=== PATIENT | male | born 1965 | race Caucasian/White ===

== ENCOUNTER 2017-03-10 13:22 | Emergency (ER) | payer OTHER ==
[~2017-03-10] VITALS: Ht 193 cm; Wt 102.1 kg
[2017-03-10] MEDS ORDERED: NS 1,000 ML IV ONE (13:30)
[2017-03-10] MEDS ORDERED: TRAZ10TA GT (13:34)
[2017-03-10] MEDS ORDERED: LEXA1TAB PO (13:34)
[2017-03-10 13:55] LABS: BASO % 0.2 % (0.0-1.0); EOS # 0.1 K/mm3 (0.0-0.50); EOS % 0.5 % (0.0-3.0); LARGE UNSTAINED CELL # 0.2 K/mm3 (0.0-0.4); LARGE UNSTAINED CELL % 1.1 % (0.0-4.0); LYMPH # 1.2 K/mm3 (1.5-4.5); LYMPH % 8.8 % (24.0-44.0); MEAN CORPUSCULAR HEMOGLOBIN 28.2 pg (27.0-33.0); MEAN CORPUSCULAR VOLUME 85.5 fl (80.0-96.0); MONO # 0.7 K/mm3 (0.0-0.8); MONO % 5.1 % (0.0-5.0); NEUTROPHILS # 11.1 K/mm3 (1.8-7.7); NEUTROPHILS % 84.3 % (36.0-66.0); PLATELET COUNT, AUTOMATED 331 k/mm3 (150-450); RED CELL DISTRIBUTION WIDTH 12.6 % (11.5-14.5); WHITE BLOOD COUNT 13.2 K/mm3 (4.0-10.0)
[2017-03-10 14:14] LABS: ALBUMIN/GLOBULIN RATIO 1.05 (1.00-1.93); ALKALINE PHOSPHATASE 54 U/L (45-117); ALT/SGPT 34 U/L (12-78); AMYLASE 79 U/L (25-115); ANION GAP 6 MEQ/L (8-16); AST/SGOT 18 U/L (15-37); BILIRUBIN,DIRECT 0.1 MG/DL (0.0-0.2); BILIRUBIN,TOTAL 0.6 MG/DL (0.2-1.0); BLOOD UREA NITROGEN 17 MG/DL (7-18); CALCIUM LEVEL 8.7 MG/DL (8.5-10.1); CARBON DIOXIDE LEVEL 33 MEQ/L (21-32); CHLORIDE LEVEL 103 MEQ/L (98-107); CREATININE FOR GFR 0.97 MG/DL (0.70-1.30); GLOMERULAR FILTRATION RATE > 60.0 (>60); GLUCOSE, FASTING 115 MG/DL (70-105); SODIUM LEVEL 142 MEQ/L (136-145); TOTAL PROTEIN 7.8 GM/DL (6.4-8.2)
--- NOTE | 2017-03-10 15:05 | REP ---
ABDOMEN, FLAT PLATE, PA CHEST, THREE VIEWS: HISTORY: Obstruction. Air is present in small and large intestine. There are no dilated loops of intestine. Several air fluid levels are present. There is no pneumothorax. The lungs are clear. IMPRESSION: Nonspecific bowel gas pattern. Signed by Jon Denney MD 03/10/2017 03:07 P
[2017-03-10] MEDS ORDERED: ONDANSETRON 4MG/2ML VIAL (J2405) IV PRN (15:15)
[2017-03-10] MEDS ORDERED: ONDANSETRON 4MG/2ML VIAL (J2405) As Ordered ONE (15:16)
[2017-03-10] MEDS ORDERED: KETOROLAC 30 MG/ML VIAL (J1885) IV ONE (15:45)
[2017-03-10] MEDS ORDERED: POTASSIUM CHLORIDE 10 MEQ SR TABLET PO ONE (16:00)
[2017-03-10] MEDS ORDERED: ZOFR4TAB3 PO (16:03)
[2017-03-10 16:28] VITALS: BP 117/70
[2017-03-11] MEDS ORDERED: ESCI20TA PO (17:58)
[2017-03-11] MEDS ORDERED: TRAZ100T4 PO (17:58)
== END 2017-03-10 16:46 | disposition home or self-care (01) ==
LOC: EDBD 13:22 → M ED 14:55
DX: K52.9 Noninfective gastroenteritis and colitis, unspecified (principal); Z79.899 Other long term (current) drug therapy
CPT/HCPCS: 74022; 80048; 80076; 82150; 83690; 85025; 96361; 96374; 96375; 99282; J1885; J2405

== ENCOUNTER 2017-03-11 13:44 | Inpatient (IN) | payer OTHER ==
[~2017-03-11] VITALS: Ht 191.8 cm; Wt 104.8 kg
[~2017-03-11 13:44] MED LIST: LEXA1TAB PO; TRAZ10TA GT; ZOFR4TAB3 PO
[2017-03-11] MEDS ORDERED: ONDANSETRON 4MG/2ML VIAL (J2405) IV ONE ×2 (14:15→17:15)
[2017-03-11] MEDS ORDERED: MORPHINE 4 MG/ML 1ML SYRINGE IV ONE ×2 (14:15→17:15)
[2017-03-11] MEDS ORDERED: NS 1,000 ML IV ONE ×3 (14:15→17:30)
[2017-03-11] MEDS ORDERED: KETOROLAC 30 MG/ML VIAL (J1885) IV ONE (14:15)
[2017-03-11 14:32] LABS: BASO % 0.2 % (0.0-1.0); EOS # 0.1 K/mm3 (0.0-0.50); EOS % 0.5 % (0.0-3.0); LARGE UNSTAINED CELL # 0.1 K/mm3 (0.0-0.4); LARGE UNSTAINED CELL % 0.6 % (0.0-4.0); LYMPH # 1.2 K/mm3 (1.5-4.5); LYMPH % 6.5 % (24.0-44.0); MEAN CORPUSCULAR HEMOGLOBIN 28.8 pg (27.0-33.0); MEAN CORPUSCULAR HGB CONC 33.9 g/dl (32.0-36.5); MONO # 0.9 K/mm3 (0.0-0.8); MONO % 4.6 % (0.0-5.0); NEUTROPHILS # 16.1 K/mm3 (1.8-7.7); NEUTROPHILS % 87.5 % (36.0-66.0); PLATELET COUNT, AUTOMATED 308 k/mm3 (150-450); RED CELL DISTRIBUTION WIDTH 12.5 % (11.5-14.5); WHITE BLOOD COUNT 18.4 K/mm3 (4.0-10.0)
[2017-03-11 15:01] LABS: ALBUMIN 4.4 GM/DL (3.2-5.2); ALBUMIN/GLOBULIN RATIO 1.22 (1.00-1.93); ALKALINE PHOSPHATASE 62 U/L (45-117); ALT/SGPT 32 U/L (12-78); AMYLASE 172 U/L (25-115); ANION GAP 9 MEQ/L (8-16); AST/SGOT 14 U/L (15-37); BILIRUBIN,DIRECT 0.2 MG/DL (0.0-0.2); BILIRUBIN,TOTAL 0.9 MG/DL (0.2-1.0); BLOOD UREA NITROGEN 20 MG/DL (7-18); CARBON DIOXIDE LEVEL 34 MEQ/L (21-32); CHLORIDE LEVEL 102 MEQ/L (98-107); CREATININE FOR GFR 1.11 MG/DL (0.70-1.30); GLOMERULAR FILTRATION RATE > 60.0 (>60); GLUCOSE, FASTING 135 MG/DL (70-105); POTASSIUM SERUM 3.2 MEQ/L (3.5-5.1); SODIUM LEVEL 145 MEQ/L (136-145)
[2017-03-11] MEDS ORDERED: ISOVUE-370 76% 100ML VIAL (Q9967) As Ordered ONE (15:04)
--- NOTE | 2017-03-11 16:20 | REP ---
CT abdomen pelvis with IV but without oral contrast: History: Generalized abdominal pain, nausea vomiting. Comparison radiographs are from the previous day. CT contrast dose: 100 mL of Isovue-[address] findings: Digital preliminary material handler loader radiograph shows an unremarkable bowel gas pattern. The lung bases are essentially clear on axial CT images. There is no evidence of pleural effusion or upper abdominal ascites. The liver and the spleen are normal in size homogeneous in texture. There is an accessory splenule anterior to this tip of the spleen. No adrenal lesion is seen on either side. Pancreas is unremarkable. There is a tiny slightly opaque area against the dependent portion of the wall of the gallbladder which could be a tiny gravel like calculus or a small polyp. Gallbladder is otherwise unremarkable. No biliary ductal dilation is observed. A normal caliber aorta is seen. No retroperitoneal mass or adenopathy is seen. Kidneys enhance symmetrically are morphologically intact. A normal appendix is visible in the right lower quadrant. Small and large bowel loops are unremarkable in the abdomen and pelvis. No evidence of free air or abnormal fluid collection seen. Right inguinal herniorrhaphy clips are noted. No abdominal wall defect is seen. No bony destructive lesion is seen. There is a unilateral left L5 spondylolysis without spondylolisthesis. There is a bifid spinous process at L5 consistent with spina bifida occulta. No other bony finding. Impression: 1. Tiny opacity on the dependent wall of the gallbladder consistent with gravel like calculus or polyp. 2. Normal appendix. 3. No other acute abdominal or pelvic abnormality. 4. Status post right inguinal herniorrhaphy. 5. Left-sided L5 spondylolysis without spondylolisthesis. Signed by Saurabh Sanz MD 03/11/2017 04:32 P
[2017-03-11] MEDS ORDERED: POTASSIUM CHLORIDE 10 MEQ SR TABLET PO ONE (16:45)
--- NOTE | 2017-03-11 17:03 | REP ---
Right upper quadrant sonography: History: Elevated lipase. Upper abdominal pain. The patient was unable to cooperate with positioning and exam quality is somewhat inhibited. Scanning through right upper quadrant of the abdomen however demonstrates a normal sized thin-walled gallbladder. No stone or polyp is appreciated. Common bile duct is seen and is measured at 0.3 cm. There is evidence of fatty infiltration of the liver. No focal liver mass lesion is seen. Pancreas is obscured by abdominal gas. There is no evidence of ascites or right renal abnormality. The right kidney measures 10.3 x 4.7 x 5.2 cm. Impression: Evidence of fatty infiltration of the liver. Otherwise negative right upper quadrant sonography. Pancreas is obscured by abdominal gas. Signed by Saurabh Sanz MD 03/11/2017 05:09 P
[2017-03-11] MEDS ORDERED: TRAZ100T4 PO (17:58)
[2017-03-11] MEDS ORDERED: ESCI20TA PO (17:58)
[2017-03-11] MEDS ORDERED: MORPHINE 2 MG/ML 1ML SYRINGE IV PRN (19:00)
[2017-03-11] MEDS: ONDANSETRON 4 MG TAB (S0181) PO PRN (19:40)
[2017-03-11] MEDS: KCL 40MEQ in NS 1000ML 1,000 ML IV SCH (19:41)
--- NOTE | 2017-03-11 19:49 | HPE ---
DATE OF ADMISSION: 03/11/2017 PRIMARY CARE PROVIDER: Lisbet Ewing CHIEF COMPLAINT: Abdominal pain. 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 He was unable to keep anything down. He reports that it persisted for another 24 hours prompting return to the emergency room today. He denies any sick contacts, changes in diet. He denies alcohol, tobacco use, recent travel or starting any new medications. His mother and father both had gallstones. He denies chest, shortness of breath, fevers, or chills. He has not had any diarrhea. PAST MEDICAL HISTORY: 1. Chronic back pain secondary to a traumatic compression. The patient follows with the pain clinic. 2. Depression. PAST SURGICAL HISTORY: Bilateral hernia repair. ALLERGIES: No known drug allergies. SOCIAL HISTORY: He does not smoke and does not drink and denies and illicit substance abuse. He is an active duty soldier. HOME MEDICATIONS: - Lexapro 20 mg at night - trazodone 100 mg at night REVIEW OF SYSTEMS: Negative other than history of present illness (HPI). FAMILY HISTORY: Negative other than HPI. PHYSICAL EXAMINATION: VITALS: Temperature 98.9, pulse 65, respiratory rate 20, blood pressure 137/74, oxygen saturation 95% on room air. GENERAL: He is a pleasant middle aged man laying in the bed at a 30 degree angle. He does not appear to be in any acute distress. HEENT: Dry mucous membranes. Cranial nerves II through XII are grossly intact. No elevation in central venous pressure. CARDIOVASCULAR: S1, S2 regular. RESPIRATION: Clear. ABDOMEN: Bowel sounds present. The abdomen is soft and is tender diffusely to palpation, worse on the right in the epigastric region. EXTREMTIIES: No clubbing Normocephalic, atraumatic, pupils equal, round and reactive to light. He has moist mucous membranes. No elevation of central venous pressure. CARDIOVASCULAR: S1, S2, regular rate and rhythm. EXTREMITIES: There is no clubbing, cyanosis, or edema. LABORATORY STUDIES: WBC 18.4, hemoglobin 18.2, hematocrit 53.5, platelet count is 308. Chemistry panel: Sodium 145, potassium 3.2, chloride 102, bicarbonate 34, BUN 20, creatinine 1.1,lipase 667. Urinalysis is fairly unremarkable. IMAGING: The patient had a CT scan of the abdomen and pelvis which revealed tiny opacity on the dependant wall of the gallbladder consistent with gravel like calculus or polyp Normal appendix. Patient had a gallbladder ultrasound that reveals tiny infiltration of the liver, otherwise negative right upper quadrant sonography. ASSESSMENT AND PLAN: This is a 51-year-old man with mild to moderate pancreatitis, etiology is not currently clear. He may have a small stone, maybe caused it. However at this time he does not appear to have other risk factors. We will check a lipid panel. We will check a urine toxicology. I will keep him nothing by mouth. Admit him to the [facility] surgical floor department with IV pain medication. Continue to provide him with IV fluid to replete his dehydrated state, likely the cause of his polycythemia as well as replace his potassium as he is mildly hypokalemic. He has been on chronic depression medications so he is not on any new medications. I suspect that he may be able to tolerate clear liquids as early as tomorrow morning. Chronic back pain. He follows with the pain clinic. He is not on any by mouth medications. Hypokalemia as outlined above. Depression. Continue his trazodone. Deep venous thrombosis (DVT) prophylaxis. The patient will be on Lovenox. DISPOSITION: The patient is admitted to the [facility] surgical service. Admitted to Dr. Sanz's service. Will continue following the patient tomorrow morning at 7 am.
[2017-03-11 19:55] VITALS: BP 136/75
[2017-03-11] MEDS: traZODone 100 MG TAB PO SCH (20:22)
[2017-03-11] MEDS: ESCITALOPRAM OXALATE 10 MG TAB (LEXAPRO) PO SCH (20:23)
[2017-03-11] MEDS: PERCOCET 5MG/325MG TAB PO PRN (20:23)
[2017-03-12] MEDS: PERCOCET 5MG/325MG TAB PO PRN ×6 (00:31→21:30)
[2017-03-12] MEDS: ONDANSETRON 4 MG TAB (S0181) PO PRN (03:57)
[2017-03-12] MEDS: KCL 40MEQ in NS 1000ML 1,000 ML IV SCH ×2 (04:39→15:41)
[2017-03-12] MEDS: ONDANSETRON 4MG/2ML VIAL (J2405) IV PRN (05:47)
[2017-03-12 06:00] VITALS: BP 123/57
[2017-03-12 06:37] LABS: MEAN CORPUSCULAR HEMOGLOBIN 28.5 pg (27.0-33.0); MEAN CORPUSCULAR HGB CONC 33.3 g/dl (32.0-36.5); MEAN CORPUSCULAR VOLUME 85.6 fl (80.0-96.0); RED CELL DISTRIBUTION WIDTH 12.7 % (11.5-14.5); WHITE BLOOD COUNT 14.3 K/mm3 (4.0-10.0)
[2017-03-12 06:56] LABS: ANION GAP 6 MEQ/L (8-16); BLOOD UREA NITROGEN 24 MG/DL (7-18); CALCIUM LEVEL 7.7 MG/DL (8.5-10.1); CARBON DIOXIDE LEVEL 29 MEQ/L (21-32); CHLORIDE LEVEL 111 MEQ/L (98-107); CHOLESTEROL LEVEL 160 MG/DL (<200); CREATININE FOR GFR 0.94 MG/DL (0.70-1.30); GLOMERULAR FILTRATION RATE > 60.0 (>60); GLUCOSE, FASTING 111 MG/DL (70-105); MAGNESIUM LEVEL 2.2 MG/DL (1.8-2.4); POTASSIUM SERUM 3.9 MEQ/L (3.5-5.1); SODIUM LEVEL 146 MEQ/L (136-145); TRIGLYCERIDES LEVEL 101 MG/DL (<150)
[2017-03-12] MEDS: ENOXAPARIN 40 MG/0.4 ML SYRINGE (J1650) SC SCH (08:40)
--- NOTE | 2017-03-12 11:44 | IPNPDOC ---
Subjective Date Seen The patient was seen on 03/12/17. Subjective Chief Complaint/HPI The patient is a 51-year-old male admitted with a reason for visit of Acute Pancreatitis. Events since last encounter continues to have nausea and epigastric and periumbilical pain, feels thirsty and feels ould be able to tolerate clear liquids, no fever or chills, no diarrhea, no chest pain or cough. Objective Physical Examination General Exam: Positive: Alert, No Acute Distress Eye Exam: Positive: Conjunctiva & lids normal, EOMI, PERRLA, Negative: Sclera icteric ENT Exam: Positive: Atraumatic, Mucous membr. moist/pink, Pharynx Normal Neck Exam: Positive: Supple, Negative: JVD, thyromegaly Chest Exam: Positive: Clear to auscultation, Normal air movement Heart Exam: Positive: Normal S1, Normal S2, Rate Normal, Regular Rhythm, Negative: Murmurs, Rubs Abdomen Exam: Positive: BS Hypoactive, Other (No guarding or rigidity), Soft, Tenderness Extremity Exam: Positive: Normal pulses, Negative: Clubbing, Cyanosis, Edema Skin Exam: Positive: Nl turgor and temperature, Negative: Breakdown, Rash Assessment /Plan Problems (1) Acute pancreatitis Status: Acute Problem Text: Vs duodenitis which can also cause elevated lipase. CT abdomen did not show any pancreatic inflammation will start clear liquids as tolerated. continue ivf, pain control with morphine and percocet. will start pantoprazole and sucralfate. (2) Chronic back pain Status: Chronic Problem Text: continue percocet or morphine. (3) Depression Status: Chronic Problem Text: continue escitalopram and lexapro. Plan/VTE VTE Prophylaxis Ordered?: Yes VS, I&O, 24H, Fishbone Vital Signs/I&O Vital Signs Date Time Temp Pulse Resp B/P Pulse Ox O2 Delivery O2 Flow Rate FiO2 03/12/17 11:23 18 03/12/17 06:00 97.3 67 123/57 94 Room Air I&O- Last 24 Hours up to 6 AM 03/12/17 06:00 Intake Total 4000 ml Output Total 0 ml Balance 4000 ml Laboratory Data 24H LABS Laboratory Tests 2 03/11/17 14:15: Aspartate Amino Transf (AST/SGOT) 14L, Alanine Aminotransferase (ALT/SGPT) 32, Alkaline Phosphatase 62, Total Bilirubin 0.9, Direct Bilirubin 0.2, Albumin 4.4 , Albumin/Globulin Ratio 1.22, Amylase Level 172H, Anion Gap 9, White Blood Count 18.4H, Red Blood Count 6.30H, Hemoglobin 18.2H, Hematocrit 53.5H, Mean Corpuscular Volume 85.0, Mean Corpuscular Hemoglobin 28.8, Mean Corpuscular Hemoglobin Concent 33.9, Red Cell Distribution Width 12.5, Platelet Count 308, Neutrophils (%) (Auto) 87.5H, Lymphocytes (%) (Auto) 6.5L, Monocytes (%) (Auto) 4.6, Eosinophils (%) (Auto) 0.5, Basophils (%) (Auto) 0.2, Neutrophils # (Auto) 16.1H, Lymphocytes # (Auto) 1.2L, Monocytes # (Auto) 0.9H, Eosinophils # (Auto) 0.1, Basophils # (Auto) 0.0, Calcium Level 9.0, Glomerular Filtration Rate > 60.0, Large Unclassified Cells # 0.1, Large Unclassified Cells % 0.6, Lipase 667H, Total Protein 8.0 03/11/17 15:54: Urine Amorphous Sediment , Urine Appearance CLEAR, Urine Color YELLOW, Urine pH 9.0, Urine Specific Palmer 1.049, Urine Protein 2+H, Urine Glucose (UA) NEGATIVE, Urine Ketones TRACEH, Urine Urobilinogen 2.0H, Urine Bilirubin NEGATIVE, Urine Leukocyte Esterase NEGATIVE, Urine Bacteria (Auto) NEGATIVE, Urine Blood NEGATIVE, Urine Calcium Carbonate Cryst(Auto) , Urine Calcium Oxalate Cryst (Auto) , Urine Calcium Phosphate Nakia (Auto) , Urine Cellular Casts , Urine Cystine Crystals , Urine Granular Casts (Auto) , Urine Hyaline Casts (Auto) 1, Urine Leucine Crystals , Urine Mucus (Auto) SMALL, Urine Nitrite NEGATIVE, Urine Oval Fat Bodies (Auto) , Urine RBC (Auto) 1, Urine Renal Epithelial Cells , Urine Sperm (Auto) , Urine Squamous Epithelial Cells 0 , Urine Transitional Epithelial Cells , Urine Trichomonas (Auto) , Urine Triple Phosphate Cryst (Auto) , Urine Tyrosine Crystals , Urine Uric Acid Crystals ( Auto) , Urine WBC (Auto) 1, Urine Waxy Casts (Auto) , Urine Yeast-Like Cells ( Auto) 03/12/17 06:17: Anion Gap 6L, Calcium Level 7.7L, Glomerular Filtration Rate > 60.0, Lipase 1537H, Triglycerides Level 101, Cholesterol Level 160, HDL Cholesterol 38L, LDL Cholesterol 101.8H, Cholesterol/HDL Ratio 4.210, Magnesium Level 2.2, Non-HDL Cholesterol (LDL + VLDL) 122 CBC/BMP Laboratory Tests 03/11/17 14:15 Red Blood Count 6.30 H, Mean Corpuscular Volume 85.0, Mean Corpuscular Hemoglobin 28.8, Mean Corpuscular Hemoglobin Concent 33.9, Red Cell Distribution Width 12.5, Neutrophils (%) (Auto) 87.5 H, Lymphocytes (%) (Auto) 6.5 L, Monocytes (%) (Auto) 4.6, Eosinophils (%) (Auto) 0.5, Basophils (%) (Auto ) 0.2, Neutrophils # (Auto) 16.1 H, Lymphocytes # (Auto) 1.2 L, Monocytes # ( Auto) 0.9 H, Eosinophils # (Auto) 0.1, Basophils # (Auto) 0.0 03/12/17 06:17 Red Blood Count 5.28, Mean Corpuscular Volume 85.6, Mean Corpuscular Hemoglobin 28.5, Mean Corpuscular Hemoglobin Concent 33.3, Red Cell Distribution Width 12.7 JEANNIE PEGUERO MD Mar 12, 2017 11:44
[2017-03-12] MEDS: SUCRALFATE SUSP 1GM/10ML UD PO SCH ×3 (12:12→20:25)
[2017-03-12] MEDS: PANTOPRAZOLE 40MG INJ (PROTONIX) (C9113) IV SCH ×2 (12:12→20:25)
[2017-03-12 14:00] VITALS: BP 135/75
[2017-03-12] MEDS: ESCITALOPRAM OXALATE 10 MG TAB (LEXAPRO) PO SCH (20:25)
[2017-03-12] MEDS: traZODone 100 MG TAB PO SCH (20:25)
[2017-03-12] MEDS: MORPHINE 4 MG/ML 1ML SYRINGE IV PRN (20:26)
[2017-03-12 22:00] VITALS: BP 131/75
[2017-03-13] MEDS: KCL 40MEQ in NS 1000ML 1,000 ML IV SCH ×3 (01:26→21:22)
[2017-03-13] MEDS: PERCOCET 5MG/325MG TAB PO PRN ×5 (02:04→21:22)
[2017-03-13 06:00] VITALS: BP 125/65
[2017-03-13 06:15] LABS: MEAN CORPUSCULAR HEMOGLOBIN 28.2 pg (27.0-33.0); MEAN CORPUSCULAR HGB CONC 32.6 g/dl (32.0-36.5); MEAN CORPUSCULAR VOLUME 86.4 fl (80.0-96.0); RED CELL DISTRIBUTION WIDTH 12.5 % (11.5-14.5); WHITE BLOOD COUNT 12.5 K/mm3 (4.0-10.0)
[2017-03-13 06:27] LABS: ANION GAP 5 MEQ/L (8-16); BLOOD UREA NITROGEN 21 MG/DL (7-18); CALCIUM LEVEL 7.9 MG/DL (8.5-10.1); CARBON DIOXIDE LEVEL 28 MEQ/L (21-32); CHLORIDE LEVEL 111 MEQ/L (98-107); CREATININE FOR GFR 0.88 MG/DL (0.70-1.30); GLOMERULAR FILTRATION RATE > 60.0 (>60); GLUCOSE, FASTING 97 MG/DL (70-105); SODIUM LEVEL 144 MEQ/L (136-145)
[2017-03-13] MEDS: SUCRALFATE SUSP 1GM/10ML UD PO SCH ×4 (06:31→21:31)
[2017-03-13] MEDS: METOCLOPRAMIDE INJ 10MG/2ML VIAL (J2765) IV PRN ×2 (09:07→21:21)
[2017-03-13] MEDS: ENOXAPARIN 40 MG/0.4 ML SYRINGE (J1650) SC SCH (09:07)
[2017-03-13] MEDS: PANTOPRAZOLE 40MG INJ (PROTONIX) (C9113) IV SCH ×2 (09:07→21:21)
[2017-03-13] MEDS: MORPHINE 4 MG/ML 1ML SYRINGE IV PRN (09:08)
--- NOTE | 2017-03-13 12:47 | IPNPDOC ---
Subjective Date Seen The patient was seen on 03/13/17. Subjective Chief Complaint/HPI The patient is a 51-year-old male admitted with a reason for visit of Acute Pancreatitis. Events since last encounter continues to have abdominal pain and nausea has not been able to tolerate clear liquids yet. Says after sucralfate belly seems to be a little better will continue trial of clear liquids. No fever or chills, no vomiting, passing gas. Objective Physical Examination General Exam: Positive: Alert, No Acute Distress Eye Exam: Positive: Conjunctiva & lids normal, EOMI, PERRLA, Negative: Sclera icteric ENT Exam: Positive: Atraumatic, Mucous membr. moist/pink, Pharynx Normal Neck Exam: Positive: Supple, Negative: JVD, thyromegaly Chest Exam: Positive: Clear to auscultation, Normal air movement Heart Exam: Positive: Normal S1, Normal S2, Rate Normal, Regular Rhythm, Negative: Murmurs, Rubs Abdomen Exam: Positive: BS Hypoactive, Other (No guarding or rigidity), Soft, Tenderness Extremity Exam: Positive: Normal pulses, Negative: Clubbing, Cyanosis, Edema Skin Exam: Positive: Nl turgor and temperature, Negative: Breakdown, Rash Assessment /Plan Problems (1) Acute pancreatitis Status: Acute Problem Text: Vs duodenitis which can also cause elevated lipase. CT abdomen did not show any pancreatic inflammation will start clear liquids as tolerated. continue ivf, pain control with morphine and percocet. will start pantoprazole and sucralfate. (2) Chronic back pain Status: Chronic Problem Text: continue percocet or morphine. (3) Depression Status: Chronic Problem Text: continue escitalopram and lexapro. Plan/VTE VTE Prophylaxis Ordered?: Yes VS, I&O, 24H, Fishbone Vital Signs/I&O Vital Signs Date Time Temp Pulse Resp B/P Pulse Ox O2 Delivery O2 Flow Rate FiO2 03/13/17 11:40 18 03/13/17 06:36 Room Air 03/13/17 06:00 98.6 63 125/65 96 I&O- Last 24 Hours up to 6 AM 03/13/17 05:59 Intake Total 2910 ml Output Total 1380 ml Balance 1530 ml Laboratory Data 24H LABS Laboratory Tests 2 03/13/17 05:59: Anion Gap 5L, Blood Urea Nitrogen 21H, Creatinine 0.88, Sodium Level 144, Potassium Level 4.0, Chloride Level 111H, Carbon Dioxide Level 28, Calcium Level 7.9L, Glomerular Filtration Rate > 60.0, Lipase 466H CBC/BMP Laboratory Tests 03/13/17 05:59 Calcium Level 7.9 L, Red Blood Count 5.18, Mean Corpuscular Volume 86.4, Mean Corpuscular Hemoglobin 28.2, Mean Corpuscular Hemoglobin Concent 32.6, Red Cell Distribution Width 12.5 JEANNIE PEGUERO MD Mar 13, 2017 12:47
[2017-03-13 14:00] VITALS: BP 125/76
[2017-03-13] MEDS: ONDANSETRON 4MG/2ML VIAL (J2405) IV PRN (16:20)
[2017-03-13] MEDS: ESCITALOPRAM OXALATE 10 MG TAB (LEXAPRO) PO SCH (21:21)
[2017-03-13] MEDS: traZODone 100 MG TAB PO SCH (21:22)
[2017-03-13 22:00] VITALS: BP 133/73
[2017-03-14] MEDS: ONDANSETRON 4MG/2ML VIAL (J2405) IV PRN ×2 (02:59→12:45)
[2017-03-14] MEDS: PERCOCET 5MG/325MG TAB PO PRN ×4 (03:00→19:51)
[2017-03-14 06:00] VITALS: BP 123/50
[2017-03-14] MEDS: KCL 40MEQ in NS 1000ML 1,000 ML IV SCH ×2 (07:00→21:31)
[2017-03-14 07:16] LABS: MEAN CORPUSCULAR HEMOGLOBIN 28.5 pg (27.0-33.0); MEAN CORPUSCULAR HGB CONC 33.9 g/dl (32.0-36.5); MEAN CORPUSCULAR VOLUME 84.2 fl (80.0-96.0); RED CELL DISTRIBUTION WIDTH 12.3 % (11.5-14.5); WHITE BLOOD COUNT 8.6 K/mm3 (4.0-10.0)
[2017-03-14 07:19] LABS: ANION GAP 6 MEQ/L (8-16); BLOOD UREA NITROGEN 12 MG/DL (7-18); CALCIUM LEVEL 7.8 MG/DL (8.5-10.1); CARBON DIOXIDE LEVEL 28 MEQ/L (21-32); CHLORIDE LEVEL 106 MEQ/L (98-107); CREATININE FOR GFR 0.75 MG/DL (0.70-1.30); GLOMERULAR FILTRATION RATE > 60.0 (>60); GLUCOSE, FASTING 94 MG/DL (70-105); POTASSIUM SERUM 3.8 MEQ/L (3.5-5.1); SODIUM LEVEL 140 MEQ/L (136-145)
[2017-03-14] MEDS: SUCRALFATE SUSP 1GM/10ML UD PO SCH ×4 (08:19→20:25)
[2017-03-14] MEDS: PANTOPRAZOLE 40MG INJ (PROTONIX) (C9113) IV SCH ×2 (08:20→20:25)
[2017-03-14] MEDS: ENOXAPARIN 40 MG/0.4 ML SYRINGE (J1650) SC SCH (08:20)
--- NOTE | 2017-03-14 10:00 | IPNPDOC ---
Subjective Date Seen The patient was seen on 03/14/17. Subjective Chief Complaint/HPI The patient is a 51-year-old male admitted with a reason for visit of Acute Pancreatitis. Events since last encounter tolerated clear liquids, had a bog bowel movement though still has epigastric tenderness. will advance diet to full liquids. Objective Physical Examination General Exam: Positive: Alert, No Acute Distress Eye Exam: Positive: Conjunctiva & lids normal, EOMI, PERRLA, Negative: Sclera icteric ENT Exam: Positive: Atraumatic, Mucous membr. moist/pink, Pharynx Normal Neck Exam: Positive: Supple, Negative: JVD, thyromegaly Chest Exam: Positive: Clear to auscultation, Normal air movement Heart Exam: Positive: Normal S1, Normal S2, Rate Normal, Regular Rhythm, Negative: Murmurs, Rubs Abdomen Exam: Positive: BS Hypoactive, Other (No guarding or rigidity), Soft, Tenderness Extremity Exam: Positive: Normal pulses, Negative: Clubbing, Cyanosis, Edema Skin Exam: Positive: Nl turgor and temperature, Negative: Breakdown, Rash Assessment /Plan Problems (1) Acute pancreatitis Status: Acute Problem Text: Vs duodenitis which can also cause elevated lipase. CT abdomen did not show any pancreatic inflammation will start clear liquids as tolerated. continue ivf, pain control with morphine and percocet. will start pantoprazole and sucralfate. (2) Chronic back pain Status: Chronic Problem Text: continue percocet or morphine. (3) Depression Status: Chronic Problem Text: continue escitalopram and lexapro. Plan/VTE VTE Prophylaxis Ordered?: Yes VS, I&O, 24H, Andreibone Vital Signs/I&O Vital Signs Date Time Temp Pulse Resp B/P Pulse Ox O2 Delivery O2 Flow Rate FiO2 03/14/17 08:21 18 03/14/17 06:00 98.0 56 123/50 97 Room Air I&O- Last 24 Hours up to 6 AM 03/14/17 06:00 Intake Total 2100 ml Output Total 1275 ml Balance 825 ml Laboratory Data 24H LABS Laboratory Tests 2 03/14/17 06:46: Anion Gap 6L, Blood Urea Nitrogen 12, Creatinine 0.75, Sodium Level 140, Potassium Level 3.8, Chloride Level 106, Carbon Dioxide Level 28, Calcium Level 7.8L, Glomerular Filtration Rate > 60.0, Lipase 432H CBC/BMP Laboratory Tests 03/14/17 06:46 Calcium Level 7.8 L, Red Blood Count 5.16, Mean Corpuscular Volume 84.2, Mean Corpuscular Hemoglobin 28.5, Mean Corpuscular Hemoglobin Concent 33.9, Red Cell Distribution Width 12.3 JEANNIE PEGUERO MD Mar 14, 2017 10:00
[2017-03-14 14:00] VITALS: BP 130/90
[2017-03-14] MEDS: MORPHINE 4 MG/ML 1ML SYRINGE IV PRN (15:50)
[2017-03-14] MEDS: METOCLOPRAMIDE INJ 10MG/2ML VIAL (J2765) IV PRN (15:50)
[2017-03-14] MEDS: ESCITALOPRAM OXALATE 10 MG TAB (LEXAPRO) PO SCH (20:25)
[2017-03-14] MEDS: traZODone 100 MG TAB PO SCH (20:25)
[2017-03-14 22:00] VITALS: BP 134/79
[2017-03-15 05:49] LABS: MEAN CORPUSCULAR HEMOGLOBIN 28.6 pg (27.0-33.0); MEAN CORPUSCULAR HGB CONC 33.9 g/dl (32.0-36.5); MEAN CORPUSCULAR VOLUME 84.5 fl (80.0-96.0); RED CELL DISTRIBUTION WIDTH 12.6 % (11.5-14.5); WHITE BLOOD COUNT 8.6 K/mm3 (4.0-10.0)
[2017-03-15 06:00] VITALS: BP 132/78
[2017-03-15 06:05] LABS: ANION GAP 6 MEQ/L (8-16); BLOOD UREA NITROGEN 10 MG/DL (7-18); CALCIUM LEVEL 8.2 MG/DL (8.5-10.1); CARBON DIOXIDE LEVEL 29 MEQ/L (21-32); CHLORIDE LEVEL 106 MEQ/L (98-107); GLOMERULAR FILTRATION RATE > 60.0 (>60); GLUCOSE, FASTING 94 MG/DL (70-105); POTASSIUM SERUM 3.7 MEQ/L (3.5-5.1); SODIUM LEVEL 141 MEQ/L (136-145)
[2017-03-15] MEDS: PANTOPRAZOLE 40MG INJ (PROTONIX) (C9113) IV SCH ×2 (08:26→21:32)
[2017-03-15] MEDS: SUCRALFATE SUSP 1GM/10ML UD PO SCH ×4 (08:26→21:32)
[2017-03-15] MEDS: ENOXAPARIN 40 MG/0.4 ML SYRINGE (J1650) SC SCH (08:26)
[2017-03-15] MEDS: SENOKOT S TAB PO SCH ×2 (08:26→21:32)
--- NOTE | 2017-03-15 10:49 | IPNPDOC ---
Subjective Date Seen The patient was seen on 03/15/17. Subjective Chief Complaint/HPI The patient is a 51-year-old male admitted with a reason for visit of Acute Pancreatitis. Events since last encounter feeling better, abdominal pain improved, tolerated full liquids. Objective Physical Examination General Exam: Positive: Alert, No Acute Distress Eye Exam: Positive: Conjunctiva & lids normal, EOMI, PERRLA, Negative: Sclera icteric ENT Exam: Positive: Atraumatic, Mucous membr. moist/pink, Pharynx Normal Neck Exam: Positive: Supple, Negative: JVD, thyromegaly Chest Exam: Positive: Clear to auscultation, Normal air movement Heart Exam: Positive: Normal S1, Normal S2, Rate Normal, Regular Rhythm, Negative: Murmurs, Rubs Abdomen Exam: Positive: BS Hypoactive, Other (No guarding or rigidity), Soft, Tenderness Extremity Exam: Positive: Normal pulses, Negative: Clubbing, Cyanosis, Edema Skin Exam: Positive: Nl turgor and temperature, Negative: Breakdown, Rash Assessment /Plan Problems (1) Acute pancreatitis Status: Acute Problem Text: Vs duodenitis which can also cause elevated lipase. CT abdomen did not show any pancreatic inflammation advance diet to soft . will dc iv morphine and reduce dose of percocet. on pantoprazole and sucralfate. (2) Chronic back pain Status: Chronic Problem Text: continue percocet or morphine. (3) Depression Status: Chronic Problem Text: continue escitalopram and lexapro. Plan/VTE VTE Prophylaxis Ordered?: Yes VS, I&O, 24H, Fishbone Vital Signs/I&O Vital Signs Date Time Temp Pulse Resp B/P Pulse Ox O2 Delivery O2 Flow Rate FiO2 03/15/17 06:00 97.6 64 16 132/78 97 Room Air I&O- Last 24 Hours up to 6 AM 03/15/17 05:59 Intake Total 1140 ml Output Total 2725 ml Balance -1585 ml Laboratory Data 24H LABS Laboratory Tests 2 03/15/17 05:26: Anion Gap 6L, Blood Urea Nitrogen 10, Creatinine 0.80, Sodium Level 141, Potassium Level 3.7, Chloride Level 106, Carbon Dioxide Level 29, Calcium Level 8.2L, Glomerular Filtration Rate > 60.0, Lipase 556H CBC/BMP Laboratory Tests 03/15/17 05:26 Calcium Level 8.2 L, Red Blood Count 5.35, Mean Corpuscular Volume 84.5, Mean Corpuscular Hemoglobin 28.6, Mean Corpuscular Hemoglobin Concent 33.9, Red Cell Distribution Width 12.6 JEANNIE PEGUERO MD Mar 15, 2017 10:49
[2017-03-15 14:00] VITALS: BP 132/76
[2017-03-15] MEDS: traZODone 100 MG TAB PO SCH (21:32)
[2017-03-15] MEDS: ESCITALOPRAM OXALATE 10 MG TAB (LEXAPRO) PO SCH (21:33)
[2017-03-15 22:00] VITALS: BP 136/72
[2017-03-16 06:00] VITALS: BP 129/64
[2017-03-16 06:19] LABS: MEAN CORPUSCULAR HEMOGLOBIN 28.5 pg (27.0-33.0); MEAN CORPUSCULAR VOLUME 83.8 fl (80.0-96.0); RED CELL DISTRIBUTION WIDTH 12.7 % (11.5-14.5)
[2017-03-16 06:33] LABS: ANION GAP 6 MEQ/L (8-16); BLOOD UREA NITROGEN 14 MG/DL (7-18); CALCIUM LEVEL 8.5 MG/DL (8.5-10.1); CARBON DIOXIDE LEVEL 30 MEQ/L (21-32); CHLORIDE LEVEL 106 MEQ/L (98-107); CREATININE FOR GFR 0.88 MG/DL (0.70-1.30); GLOMERULAR FILTRATION RATE > 60.0 (>60); GLUCOSE, FASTING 95 MG/DL (70-105); POTASSIUM SERUM 3.5 MEQ/L (3.5-5.1); SODIUM LEVEL 142 MEQ/L (136-145)
[2017-03-16] MEDS: SENOKOT S TAB PO SCH (07:45)
[2017-03-16] MEDS: ENOXAPARIN 40 MG/0.4 ML SYRINGE (J1650) SC SCH (07:45)
[2017-03-16] MEDS: SUCRALFATE SUSP 1GM/10ML UD PO SCH ×2 (07:45→12:00)
[2017-03-16] MEDS: PANTOPRAZOLE 40MG INJ (PROTONIX) (C9113) IV SCH (07:45)
[2017-03-16] MEDS ORDERED: SUCR10SS PO (11:23)
[2017-03-16] MEDS ORDERED: PANT40TA2 PO (11:23)
--- NOTE | 2017-03-16 13:50 | DSES ---
DATE OF ADMISSION: 03/11/2017 DATE OF DISCHARGE: 03/16/2017 PRIMARY CARE PROVIDER: Jermain Verdin [facility] DISCHARGE DIAGNOSES: 1. Acute pancreatitis. 2. Gastritis and duodenitis. 3. Chronic back pain. 4. Depression. 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 He was found to have elevated lipase in the blood, though abdominal CT scan done did not show any definitive pancreatic inflammation. However, CT of the abdomen did show a tiny opacity in the dependent wall of the gallbladder, thought to be consistent with gravel-like calculus or polyp. The patient had a followup gallbladder ultrasound done, which did not show any gallbladder stone, or any evidence of cholecystitis. Common bile duct (CBD) was normal in caliber. There was fatty infiltration of the liver. However, the patient continued to have persistent abdominal pain with nausea, so it was felt the patient probably had pancreatitis and may have had some gallbladder sludge which had passed. After about 2 days, the patient's pain started improving. The patient's diet was advanced and the patient was able to tolerate diet. At present, the patient is symptom-free with stable vitals and functionally at baseline, and he is going to be discharged home in stable condition. ADDITIONAL DISCHARGE DIAGNOSIS: Spina bifida occulta see on CT scan of abdomen. PHYSICAL EXAMINATION: VITAL SIGNS: Temperature 98.9, pulse 64, respiratory rate 14, blood pressure 129/64, pulse oximetry 100% in room air. GENERAL: Patient awake, alert, oriented times three, lying down in bed in no acute distress. HEENT: Normocephalic, atraumatic. Moist mucous membranes. Anicteric eyes. CHEST: Clear to auscultation. CARDIOVASCULAR: S1, S2 regular. ABDOMEN: Soft, nontender. Bowel sounds present. EXTREMITIES: No edema. LABORATORY DATA: WBC 10, hemoglobin 15.4, platelets 256. Sodium 142, potassium 3.5, chloride 106, bicarbonate 30, BUN 14, creatinine 0.8, glucose 95, calcium 8.5, lipase 556. DISPOSITION: The patient is discharged home in stable condition. DISCHARGE INSTRUCTIONS: Patient to followup with primary care provider at [facility] prior to joining active duty. Diet as tolerated. Activity as tolerated.
== END 2017-03-16 12:30 | disposition home or self-care (01) | DRG 440 ==
LOC: M ED 14:19 → M ED INP 18:57 → M MSPAV 19:56
PROVIDERS: ADMIT Internal Medicine; ATTEND Internal Medicine Nephrology
DX: K85.90 Acute pancreatitis without necrosis or infection, unspecified (principal); F32.9 Major depressive disorder, single episode, unspecified; K29.70 Gastritis, unspecified, without bleeding; K29.80 Duodenitis without bleeding; M54.9 Dorsalgia, unspecified; Q76.0 Spina bifida occulta; Z79.899 Other long term (current) drug therapy

== ENCOUNTER 2018-04-06 19:50 | Emergency (ER) | payer OTHER ==
[2018-04-06] MEDS: METOPROLOL TART 25 MG TABLET PO (20:37)
[2018-04-06 20:38] LABS: BASO # 0.1 10^3/uL (0.0-0.2); BASO % 0.7 % (0.0-1.0); EOS # 0.2 10^3/uL (0.0-0.50); EOS % 2.2 % (0.0-3.0); HEMATOCRIT 45.7 % (42.0-52.0); HEMOGLOBIN 15.7 g/dl (13.5-17.5); IMMATURE GRANULOCYTE % 0.2 % (0-3.0); LYMPH # 3.4 10^3/uL (1.5-4.5); MEAN CORPUSCULAR HEMOGLOBIN 28.2 pg (27.0-33.0); MEAN CORPUSCULAR HGB CONC 34.4 g/dl (32.0-36.5); MONO # 0.9 10^3/uL (0.0-0.8); MONO % 9.2 % (0.0-5.0); NEUTROPHILS # 5.5 10^3/uL (1.8-7.7); NEUTROPHILS % 53.7 % (36.0-66.0); PLATELET COUNT, AUTOMATED 284 10^3/uL (150-450); RED BLOOD COUNT 5.57 10^6/uL (4.30-6.10); RED CELL DISTRIBUTION WIDTH 12.4 % (11.5-14.5); WHITE BLOOD COUNT 10.1 10^3/uL (4.0-10.0)
[2018-04-06] MEDS: MORPHINE 2 MG/ML 1ML SYRINGE (J2270) IV (20:38)
[2018-04-06] MEDS: NITROGLYCERIN 2% OINT 1 GM *U/D* PKT TOP (20:38)
[2018-04-06 20:48] LABS: INR 0.99; PROTHROMBIN TIME 13.2 SECONDS (12.4-14.5)
[2018-04-06 20:49] LABS: PARTIAL THROMBOPLASTIN TIME 23.7 SECONDS (26.8-37.9)
[2018-04-06 21:08] LABS: ANION GAP 6 MEQ/L (8-16); BLOOD UREA NITROGEN 13 MG/DL (7-18); CALCIUM LEVEL 8.8 MG/DL (8.5-10.1); CARBON DIOXIDE LEVEL 28 MEQ/L (21-32); CHLORIDE LEVEL 109 MEQ/L (98-107); CK-MB VALUE MASS < 1.0 NG/ML (<3.6); CPK CREATINE PHOSPHOKINASE 121 U/L (39-308); GLOMERULAR FILTRATION RATE > 60.0 (>56); GLUCOSE, FASTING 136 MG/DL (70-100); MB/CK RELATIVE INDEX 0.82 (< OR =4); POTASSIUM SERUM 3.7 MEQ/L (3.5-5.1); SODIUM LEVEL 143 MEQ/L (136-145); TROPONIN I < 0.02 NG/ML (< 0.10)
[2018-04-06] MEDS ORDERED: ISOVUE-370 76% 100ML VIAL (Q9967) As Ordered (21:37)
[2018-04-06] MEDS: MORPHINE 4 MG/ML 1ML VIAL/SYRINGE (J2270) IV (23:36)
[2018-04-07 01:46] LABS: CK-MB VALUE MASS < 1.0 NG/ML (<3.6); CPK CREATINE PHOSPHOKINASE 109 U/L (39-308); MB/CK RELATIVE INDEX 0.91 (< OR =4); TROPONIN I < 0.02 NG/ML (< 0.10)
== END 2018-04-07 02:07 | disposition home or self-care (01) ==
LOC: M ED 04-07 02:07
DX: R07.89 Other chest pain (principal); K21.9 Gastro-esophageal reflux disease without esophagitis; F32.9 Major depressive disorder, single episode, unspecified; G89.29 Other chronic pain; M54.2 Cervicalgia
CPT/HCPCS: Q9967

== ENCOUNTER 2018-08-17 13:02 | Day surgery (SDC) | payer OTHER ==
[~2018-08-17 13:02] MED LIST changes: -LEXA1TAB PO; +LIDOCAINE 2% INJ 100 MG/5 ML SDV (FOR ANES.) As Ordered; +PROPOFOL 200 MG/20 ML VIAL As Ordered; -TRAZ10TA GT; -ZOFR4TAB3 PO; +fentaNYL 100 MCG/2 ML INJECTION (J3010) As Ordered
[2018-08-17] MEDS ORDERED: NS 1,000 ML IV (13:45)
== END 2018-08-17 16:13 | disposition home or self-care (01) ==
LOC: M OPP 16:13
DX: Z12.11 Encounter for screening for malignant neoplasm of colon (principal); K62.1 Rectal polyp; K64.8 Other hemorrhoids; R12 Heartburn; K22.8 Other specified diseases of esophagus; R07.89 Other chest pain; M94.0 Chondrocostal junction syndrome [Tietze]; Z86.79 Personal history of other diseases of the circulatory system; K21.9 Gastro-esophageal reflux disease without esophagitis; M48.00 Spinal stenosis, site unspecified; G47.00 Insomnia, unspecified; M54.5 Low back pain; F32.9 Major depressive disorder, single episode, unspecified; F43.10 Post-traumatic stress disorder, unspecified; Z79.899 Other long term (current) drug therapy
CPT/HCPCS: 45385